=== PATIENT | female | born 1970 | race Caucasian/White ===

== ENCOUNTER 2018-08-13 15:47 | Emergency (ER) | payer OTHER ==
[2018-08-13 16:10] VITALS: BMI 35.5
[2018-08-13 16:12] VITALS: RESP 18; TEMP 98.2
--- NOTE | 2018-08-13 16:57 | ED PDOC ---
Arrival/HPI - General Chief Complaint: Back Pain Time Seen by Provider: 08/13/18 16:30 Historian: Patient - History of Present Illness Narrative History of Present Illness (Text): 08/13/18 16:57 48 y/o F, with no significant past medical history, presents to the ED for evaluation of right shoulder pain and right leg pain for past 1 week. Patient reports mild radiation of pain to her back, experienced mostly during the morning at rest. Patient informs improvement of symptoms with anti-inflammatory medications such as Aleve. Patient denies any injury or trauma to the area. Patient denies any other associated somatic complaints. Patient denies any fevers, chills, headache, dizziness, focal weakness, neurofocal deficits, chest pain, shortness of breath, dyspnea on exertion, cough, abdominal pain, nausea, vomiting, diarrhea, neck pain, or any other complaints. Time/Duration: 1 week Symptom Onset: Gradual Symptom Course: Unchanged Quality: Aching Activities at Onset: Light Context: Home Past Medical History - Provider Review Nursing Documentation Reviewed: Yes - Infectious Disease Hx of Infectious Diseases: None - Tetanus Immunization Tetanus Immunization: Unknown - Past Medical History Past Medical History: No Previous - Psychiatric Hx Depression: No Hx Emotional Abuse: No Hx Physical Abuse: No Hx Substance Use: No - Surgical History Hx Appendectomy: Yes Other/Comment: cyst removal - Anesthesia Hx Anesthesia: Yes Hx Anesthesia Reactions: No - Suicidal Assessment Feels Threatened In Home Enviroment: No Family/Social History - Physician Review Nursing Documentation Reviewed: Yes Family/Social History: Unknown Family HX Smoking Status: Never Smoked Hx Alcohol Use: No Hx Substance Use: No Hx Substance Use Treatment: No Allergies/Home Meds Allergies/Adverse Reactions: Allergies Penicillins Adverse Reaction (Verified 08/13/18 16:10) ANAPHYLAXIS Review of Systems - Physician Review All systems were reviewed & negative as marked: Yes - Review of Systems Constitutional: absent: Fevers Respiratory: absent: SOB, Cough Cardiovascular: absent: Chest Pain Gastrointestinal: absent: Abdominal Pain, Diarrhea, Nausea, Vomiting Genitourinary Female: absent: Dysuria, Urine Output Changes Musculoskeletal: Arthralgias (right shoulder pain), Myalgias (Right leg pain). absent: Neck Pain Skin: absent: Rash Neurological: absent: Headache, Dizziness Psychiatric: absent: Anxiety Physical Exam Vital Signs Reviewed: Yes Vital Signs Temp Pulse Resp BP Pulse Ox 08/13/18 16:10 98.2 F 80 18 131/80 95 Temperature: Afebrile Blood Pressure: Normal Pulse: Regular Respiratory Rate: Normal Appearance: Positive for: Well-Appearing, Non-Toxic, Comfortable Pain Distress: None Mental Status: Positive for: Alert and Oriented X 3 - Systems Exam Head: Present: Atraumatic, Normocephalic Pupils: Present: PERRL Extroacular Muscles: Present: EOMI Conjunctiva: Present: Normal Neck: Present: Normal Range of Motion. No: MIDLINE TENDERNESS Respiratory/Chest: Present: Clear to Auscultation, Good Air Exchange. No: Respiratory Distress, Accessory Muscle Use Cardiovascular: Present: Regular Rate and Rhythm, Normal S1, S2. No: Murmurs Abdomen: No: Tenderness, Distention, Peritoneal Signs Back: Present: Paraspinal Tenderness (lumbar region), Pain with Leg Raise (positive straight leg raise test on the right) Upper Extremity: Present: Normal Inspection. No: Cyanosis, Edema Lower Extremity: Present: Normal Inspection. No: Edema Neurological: Present: GCS=15, CN II-XII Intact, Speech Normal Skin: Present: Warm, Dry, Normal Color. No: Rashes Psychiatric: Present: Alert, Oriented x 3, Normal Insight, Normal Concentration Medical Decision Making ED Course and Treatment: 08/13/18 16:35 Impression: 48 year old female presents to the ED for evaluation of right shoulder and right leg pain. Differential Diagnosis included but are not limited to: -- Musculoskeletal Pain Plan: -- EKG -- Labs -- Lidoderm -- Toradol -- Valium -- Reassess and disposition Prior Visits: Notes and results from previous visits were reviewed. Progress Notes: 08/13/18 18:20 Patient reassessed and feels much better. She is able to ambulate unassisted around unit without difficulty. Shared decision making with patient agreeing to conservative management at home with continued monitoring of symptoms. Scripts provided. She is stable for discharge. - EKG Interpretation EKG Interpretation (Text): 08/13/18 16:38 EKG reviewed, shows NSR @ 77 bpm, No ST elevations, Normal QT interval. Interpreted by ED Physician: Yes Type: 12 lead EKG - Scribe Statement The provider has reviewed the documentation as recorded by the Scribe Clarissa Hoffman. All medical record entries made by the Scribe were at my direction and personally dictated by me. I have reviewed the chart and agree that the record accurately reflects my personal performance of the history, physical exam, medical decision making, and the department course for this patient. I have also personally directed, reviewed, and agree with the discharge instructions and disposition. Disposition/Present on Arrival - Present on Arrival Any Indicators Present on Arrival: No History of DVT/PE: No History of Uncontrolled Diabetes: No Urinary Catheter: No History of Decub. Ulcer: No History Surgical Site Infection Following: None - Disposition Have Diagnosis and Disposition been Completed?: No Diagnosis: Shoulder pain, right, Back pain Disposition: HOME/ ROUTINE Disposition Time: 18:22 Patient Plan: Discharge Discharge Instructions (ExitCare): Shoulder Pain (DC) Print Language: FRENCH Additional Instructions: All medical record entries made by the Scribe were at my direction and personally dictated by me. I have reviewed the chart and agree that the record accurately reflects my personal performance of the history, physical exam, medical decision making, and the department course for this patient. I have also personally directed, reviewed, and agree with the discharge instructions and disposition. Prescriptions: Cyclobenzaprine [Cyclobenzaprine HCl] 10 mg PO PRN PRN #12 tab PRN Reason: Muscle Spasm Lidocaine 5% [Lidoderm] 1 ea TD Q12 #5 patch Naproxen 500 mg PO Q6H #10 tab Forms: [employer] ([place]), WORK NOTE
[2018-08-13] MEDS ORDERED: Lidocaine 5% Patch TD ONE (17:00)
[2018-08-13 19:26] VITALS: BP 126/71; PULSE 88; O2SAT 99
--- NOTE | 2018-08-13 23:08 | CARD ---
APPROVED REPORT Date of service: 08/13/2018 EKG Measurement Heart [id number] <Conclusion> Normal sinus rhythm Normal ECG
== END 2018-08-13 19:24 | disposition home or self-care (01) ==
LOC: ED 15:47
DX: M25.511 Pain in right shoulder (principal); M54.9 Dorsalgia, unspecified
CPT/HCPCS: 81025; 93005; 96374; 99285; J1885